=== PATIENT | male | born 1975 | race African-American/Black ===

== ENCOUNTER 2022-03-14 10:30 | Outpatient (CLI) | payer OTHER ==
[2022-03-14 11:16] VITALS: BP 128/80
--- NOTE | 2022-03-14 11:16 | SLEEP CARE CONSULTATION ---
Information from patient questionnaire entered by Mia Reinoso. I have reviewed and concur with the information entered by Mia Reinoso. This document represents the service I personally performed and the decisions made by me, Michelle Marie ARNP. History of Present Illness Service Date and Time: 03/14/2022 1030 Reason for Visit: New patient Chief Complaint: reports: Insomnia, Unrefreshed sleep, Snoring, Observed pauses in breathing, Fatigue, Frequent awakenings at night Date of Onset: 2YRS Usual bedtime: 9PM Time it takes to fall asleep: 10-11PM Snores at night: Yes Observed to quit breathing while asleep: No Sleeps alone due to snoring: Yes Number of times waking at night: 3-4 Reasons for waking at night: reports: Choking, Snoring, Bathroom. denies: Gasping for air Toss, Turn, or Twitch while sleeping: Yes Recalls having dreams: Yes Usually gets out of bed at: 4AM Feels refreshed in the morning: No Morning headache: Yes (3 times a week; Takes Sumatriptan for migraines) Sleepy or fatigued during the day: Yes Ever fallen asleep while driving: No Takes day naps: No Dreams during day naps: Yes Prior sleep studies: No Additional HPI information: I had the pleasure of seeing STEPHANIE WILKINS today regarding the possibility of him having a sleep disorder. His current complaints are unrefreshed sleep, snoring, observed pauses in breathing, fatigue and frequent night awakenings. He states he has a hard time sleeping and snoring a lot. His has complained of being woke up from his snoring. He has woke feeling like he is choking. He will wake up with nose congestion that clears quickly in the mornings. He goes to sleep in about an hour to fall asleep. He will wake up for bathroom or turning 3-4 times a night. He also wakes up because of dreams, some are disturbing dreams. His has noted that he sometimes has trouble breathing. He rarely wakes up feeling rested. - Parasomnia Symptoms Ever been unable to move upon waking from sleep: No Walks in sleep: No Talks in sleep: Yes (sometimes) Ever acted out dreams in sleep: Yes Ever felt weak in the knees when startled or emotional: No Bothered by creepy, crawly, restless sensations in legs: No Problems with memory or concentration: No Subjective Initial [place] Sleepiness Scale score: 5 (02/22/22) Past Medical History Past Medical History: reports: Hypertension, Other (MIGRAINES) Social History The patient's occupation is a [employer]. Patient is and lives in . Have you smoked in the past 12 months: No Alcohol use: No Caffeine use: No Family History Family history of sleep disordered breathing: No Allergies and Home Medications Known drug allergies: No Drug allergies reviewed: Yes (NKDA) Home medication list reviewed: Yes Allergy and home medication list: Medications: Sumatriptan Lisinopril Review of Systems Weight loss over past 5 years: 10 Cardiovascular: reports: high blood pressure Gastrointestinal: denies: heartburn Neurological: reports: headaches. denies: head trauma Ear/Nose/Throat: reports: wisdom teeth removed. denies: tonsillectomy Endocrine: reports: too hot or cold Physical Exam Vital signs obtained and entered by: MIA Ovalles MA Blood Pressure: 128/80 (LEFT ARM) Cuff size: regular Heart Rate: 53 O2 Saturation: 99 Height: 5 ft 9 in Weight: 179 lb 6.4 oz (with clothes/boots) Body Mass Index: 26.4 BMI Classification: Overweight Neck circumference: 16.5 Mouth and throat: narrow oropharynx Soft palate: long Hard palate: normal Uvula: normal Uvula visualization: 25% Mallampati Class III Tongue: enlarged in size with teeth del rosario on lateral edges Tonsils: small Neck: normal w/o lymphadenopathy or thyromegaly Heart: regular rate and rhythm Lungs: clear bilaterally Impression and Plan 1. Suspected Obstructive Sleep Apnea-Hypopnea Syndrome, as suggested by a history of loud and irregular snoring, observed cessation of breath while asleep, gasping or choking in sleep, morning headache, frequent awakening during the night, unrefreshed sleep, and excessive daytime sleepiness. Narrow oropharynx and obesity are common predisposing factors for obstructive sleep apnea-hypopnea syndrome. I recommend proceeding to polysomnography to confirm the diagnosis and to assess severity. If the patient has significant sleep disordered breathing, a manual CPAP titration study will also be performed to find the optimal treatment pressure. I informed the patient of what the sleep studies involve and after some discussion, obtained agreement to proceed. The pathophysiology of obstructive sleep apnea-hypopnea syndrome was discussed with the patient and health risks of cardiovascular and cerebrovascular disease if not treated. Risks of drowsy driving discussed in detail and patient advised to avoid long distance driving and to pan puller at the first sign of drowsiness. Patient agreed to plan. * Schedule polysomnography * Avoid long distance driving or driving when feeling sleepy. * Avoid alcohol, sedative and muscle relaxant around bedtime. * Attempt to lose weight. * Review instructions provided by trained office staff on how to prepare for the sleep study. * Return for follow-up after sleep study completed. Counseling Topics: Weight loss health impact Visit Type: In Office Time Spent with Patient (minutes): 32 Provider Statement: I spent 100% of the Face to Face Visit with the patient with greater than 50% spent counseling the patient and coordination of care.
== END 2022-03-14 10:31 | disposition home or self-care (01) ==
LOC: SC 10:30
PROVIDERS: ATTEND Nurse Practitioner Family
DX: R06.83 Snoring (principal); G47.8 Other sleep disorders; R06.81 Apnea, not elsewhere classified; R51.9 Headache, unspecified; G47.10 Hypersomnia, unspecified; R53.83 Other fatigue; I10 Essential (primary) hypertension; E66.3 Overweight; Z68.26 Body mass index [BMI] 26.0-26.9, adult
CPT/HCPCS: 99203; 99212

== ENCOUNTER 2022-04-24 20:29 | Outpatient (CLI) | payer OTHER | END 2022-04-24 20:30 | disposition home or self-care (01) | LOC: SC 20:29 | PROVIDERS: ATTEND Nurse Practitioner Family | DX: G47.33 Obstructive sleep apnea (adult) (pediatric) (principal) | CPT/HCPCS: 95810 ==

== ENCOUNTER 2022-05-17 14:47 | Outpatient (CLI) | payer OTHER ==
[2022-05-17 15:21] VITALS: BP 132/80
--- NOTE | 2022-05-17 15:21 | SLEEP CARE CONSULTATION ---
Information from patient questionnaire entered by Vannessa Reinoso. I have reviewed and concur with the information entered by Vannessa Reinoso. This document represents the service I personally performed and the decisions made by , Michelle Marie ARNP. History of Present Illness Service Date and Time: 05/17/2022 144 Initial [place] Sleepiness Scale score: 5 (02/22/22) Current [place] Sleepiness Scale score: 6 (05/17/22) Additional HPI information: STEPHANIE WILKINS returns for follow up and results of the recently performed polysomnography. I explained the pathophysiology behind obstructive sleep apnea. We then spent quite a bit of time discussing different treatment options. For mild obstructive sleep apnea, surgery and oral appliance are alternatives to nasal CPAP therapy but in moderate or severe cases, nasal CPAP is the most effective and reliable treatment. Because apnea is primarily in supine position, then positional management therapy could be effective. Methods discussed such as positioning with pillows to prevent supine sleep. I reviewed the impact of weight changes on sleep apnea and strongly recommended losing some weight. After some discussion, the patient opted to go with the nasal CPAP therapy. Nasal autoCPAP set at 4-15 cmH20 will be ordered with rationale explained. A manual titration study will be ordered if unable to find optimal pressure with office adjustments. I explained how CPAP machine works and what to expect when using the machine. Using CPAP every night in order to get used to it was emphasized. Patient advised to put CPAP mask on before getting into bed so as not to fall asleep without CPAP. To assist acclimation to CPAP use, it could also be used for a short time during day while reading or watching TV. The patient was instructed to call the CPAP supplier to discuss any mechanical problem that may occur. If the mask given is uncomfortable or is difficult to keep on through the night even with adjustment, contact the CPAP supplier as many will replace with another mask style if notified before 30 days. If snoring or perceives is not getting enough air or too much air from the machine, notify this office. Patient does not drink alcohol. Patient was cautioned about risks of drowsy driving until sleepiness symptoms resolve. Patient denies drowsy driving. Sleep Study - Results Type of Sleep Study: Polysomnography (COMPLETED 04/24/22) Prior sleep studies: No Polysomnography/Home Sleep Study results: IMPRESSION: The quality of the study is good. The patient had slightly reduced sleep efficiency. Except for mild sleep fragmentation, the sleep architecture was normal. Respiratory monitoring showed mild obstructive sleep apnea-hypopnea (AHI = 6.3) associated with frequent arousals, oxyhemoglobin desaturation and mild hypoxia (maxine oxygen saturation of 88%). The respiratory events occurred almost exclusively during supine sleep (supine AHI = 7.4; non-supine = 3.19). Snore was loud in intensity. There was no significant periodic leg movement of sleep. Cardiac rhythm was normal sinus rhythm without significant arrhythmia. No abnormal behavior (parasomnia) observed during the night. Allergies and Home Medications Known drug allergies: No Drug allergies reviewed: Yes Home medication list reviewed: Yes (no changes) Allergy and home medication list: Allergies No Known Drug Allergies Allergy (Verified 05/16/22 10:13) Review of Systems Review of systems same as previous: Yes (no changes) Physical Exam Vital signs obtained and entered by: VANNESSA Ovalles MA Blood Pressure: 132/80 (LEFT ARM) Cuff size: regular Heart Rate: 58 O2 Saturation: 98 Height: 5 ft 9 in Weight: 180 lb Body Mass Index: 26.6 BMI Classification: Overweight Impression and Plan 1. Obstructive Sleep Apnea-Hypopnea Syndrome, mild, with lowest oxygen saturation of 88%. Obviously this is the cause of the patients symptoms of unrefreshed sleep, and excessive daytime sleepiness. Positive pressure therapy could benefit hypertension and migraines. As mentioned above, the patient will be started on nasal autoCPAP therapy with pressure set at 4-15 cmH2O. Compliance guidelines also reviewed. A copy of compliance guidelines will be given for reference at check out. Because the apnea is more severe supine, I instructed to avoid sleeping supine using pillow positioning until able to start CPAP use. * Nasal auto CPAP therapy, pressure at 4-15 cm H2O. * Attempt to lose weight. * Avoid alcohol consumption near bedtime. * Avoid supine sleep until using CPAP. * The patient is again cautioned about driving until sleepiness completely resolves. * Return one month after CPAP obtained. I will assess response to therapy and compliance at that time. Counseling Topics: Weight loss health impact Visit Type: In Office Time Spent with Patient (minutes): 20 Provider Statement: I spent 100% of the Face to Face Visit with the patient with greater than 50% spent counseling the patient and coordination of care.
== END 2022-05-17 14:48 | disposition home or self-care (01) ==
LOC: SC 14:47
PROVIDERS: ATTEND Nurse Practitioner Family
DX: G47.33 Obstructive sleep apnea (adult) (pediatric) (principal); E66.3 Overweight; Z68.26 Body mass index [BMI] 26.0-26.9, adult
CPT/HCPCS: 99212; 99213